=== PATIENT | male | born 1970 | race Caucasian/White ===

== ENCOUNTER → 2019-02-17 | Day surgery (SDC) | payer BC ==
[~2019-02-17] MED LIST: BUPIVACAINE 0.5% W/EPI 30 ML VIAL INJ ONE; DEXAMETHASONE INJ 10 MG/ML VIAL IV ONE; ELECTROLYTE-A 1,000 ML IVS ONE; KETAMINE HCL 100 MG/ML VIAL ONE; LACTATED RINGERS 1,000 ML ONE; LIDOCAINE 1% 10 ML VIAL INJ ONE; MIDAZOLAM INJ 2 MG/2 ML VIAL ONE; PROPOFOL 200 MG/20 ML VIAL IV ONE; SODIUM CHL 0.9% 100ML MINI-BAG 100 ML IVPB ONE; ceFAZolin SODIUM 1 GM VIAL IVPB ONE; ceFAZolin SODIUM 1 GM VIAL ONE; fentaNYL CITRATE INJ 50 MCG/ML AMP ONE; raNITIdine HCL INJ 25 MG/ML VIAL IV ONE
--- NOTE | 2019-02-17 12:06 | OP ---
DATE OF PROCEDURE: 02/17/19 PREOPERATIVE DIAGNOSIS: 1. Large right inguinal hernia. POSTOPERATIVE DIAGNOSIS: 1. Large right inguinal. PROCEDURE: 1. Repair of large right inguinal hernia. 2. Ilioinguinal nerve block for postoperative pain control. 3. Excision of 5 cm retroperitoneal tumor. SURGEON: Lucio Minor MD. ANESTHESIA: General and local. FINDINGS: The patient had a very large right inguinal hernia with a cord lipoma. Also, the fatty hernia was part of the retroperitoneum and part of the colon was in it. The anterior sac was not identifiable, so I could place the mesh preperitoneal, so we did a Jemal type onlay after reducing all the hernia contents. COMPLICATIONS: None. ESTIMATED BLOOD LOSS: Minimal. PLAN: Discharge. INDICATION: As stated. PROCEDURE: General anesthesia was induced. He was prepped and draped in sterile fashion. 0.5% Marcaine with epinephrine was used at the incision site and ilioinguinal nerve block was performed with 3 mL of 0.5% Marcaine with epinephrine based on anatomic landmarks. Incision was made. Subcutaneous tissue was taken down. A subcutaneous vessel was cauterized and divided. The external oblique aponeurosis was identified. A small lizbeth was made. It was opened along its fibers exposing the floor and the cord. The cord was isolated off the tubercle. A very large fatty cord surrounded with a Dameon. We began dissecting out and dissected off a good size cord lipoma, ligated at its base. As we were dissecting the hernia off the cord, it was large and going down into the deep scrotum. As I was wanting to ligate it in half to avoid the excessive dissection, we noticed there was some colon proximal. This appeared to be some epiploic off the colon, so I simply dissected off the cord structures and reduced it. I looked for the anterior peritoneum to maybe close it and put my preperitoneal mesh, but even though we tried, it was buried in the internal ring, so all the contents were reduced. There was a slight direct component, so 2-0 Vicryl sutures were used to close down medially on the Michele's and the conjoint tendon. Once this was closed, my PHS was fashioned. The center portion was in the internal ring. We secured it to the tubercle with interrupted sutures along the shelving edge and then anteriorly, it laid laterally underneath the external oblique. We also made a cut, wrapped around the cord, nonstricturing and put a couple of stitches around the internal ring musculature. There was no bleeding. The ilioinguinal nerve was identified and spared. We then put that down out of harm's way and put some more local and closed the external oblique with a running 2-0 Vicryl, again ensuring the nerve was not a factor. Once that was closed, more local was placed. The wound was closed in 2 layers, a dressing applied. He was awakened and taken to Recovery to be discharged. #[id number] [facility]
[2019-02-17 14:20] VITALS: BP 158/103; TEMP 97.7; O2SAT 92
== END ==
LOC: AMB 05:14
PROVIDERS: ATTEND Surgery
DX: K40.90 Unilateral inguinal hernia, without obstruction or gangrene, not specified as recurrent (principal); D17.6 Benign lipomatous neoplasm of spermatic cord; Z83.3 Family history of diabetes mellitus; Z82.49 Family history of ischemic heart disease and other diseases of the circulatory system
CPT/HCPCS: 00830; 49505; 55520; 64450; J0690; J1100; J2250; J2780; J3010; J3490; J7050; J7120

== ENCOUNTER 2020-04-08 15:40 | Emergency (ER) | payer BC ==
[2020-04-08] MEDS ORDERED: SODIUM CHLORIDE 0.9% 1000ML 1,000 ML IVS PRN (15:57)
[2020-04-08] MEDS ORDERED: SODIUM CHLORIDE 0.9% (FLUSH) 10 ML SYG IV PRN (15:57)
[2020-04-08] MEDS ORDERED: TETANUS,DIPHTHERIA,PERTUSSIS 1 EA SYG IM ONE (15:59)
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
[2020-04-08 19:03] VITALS: BP 147/97; TEMP 99.1; O2SAT 98
== END 2020-04-08 18:20 | disposition home or self-care (01) ==
LOC: ER 15:40
DX: S70.311A Abrasion, right thigh, initial encounter (principal); F10.129 Alcohol abuse with intoxication, unspecified; S60.512A Abrasion of left hand, initial encounter; S80.211A Abrasion, right knee, initial encounter; S50.812A Abrasion of left forearm, initial encounter; S30.811A Abrasion of abdominal wall, initial encounter; R31.29 Other microscopic hematuria; W30.89XA Contact with other specified agricultural machinery, initial encounter; Y92.9 Unspecified place or not applicable
CPT/HCPCS: 36415; 73551; 74177; 80053; 80320; 81001; 82150; 85025; 85610; 85730; 90471; 90715; J7030